=== PATIENT | male | born 1970 | race Caucasian/White ===

== ENCOUNTER 2017-06-09 10:06 | Emergency (ER) | payer MEDICARE ==
[~2017-06-09] VITALS: Ht 182.9 cm; Wt 82.0 kg
[2017-06-09 10:25] VITALS: BP 140/80; PULSE 68; RESP 20; TEMP 98; O2SAT 100
--- NOTE | 2017-06-09 10:39 | PD ---
HPI Chief Complaint: Psychiatric Symptoms Time Seen by Provider: 10:39 Travel History International Travel<30 days: No Contact w/Intl Traveler<30days: No Traveled to known affect area: No History of Present Illness HPI 47-year-old male presents to the emergency Department with various stories of being here from [place] approximate 6 months, with a history of adrenal issues as well as thyroid issues. Patient states he is living in a fpc where people as his past codeine get in his room, he feels his medications are being stolen. Patient is supposed to be taking Paxil, Dilantin , as well as thyroid medication. He states he is on disability but unable to get a job. He states supposedly had $50,000 in a bank account which is now gone. Patient denies alcohol or drug use. Is requesting to see a psychiatrist , but denies suicidal or homicidal ideation. Patient story is somewhat disjointed and tangential. He has no known drug allergies. PFSH Past Medical History Asthma: Yes Anxiety: Yes Depression: Yes Diabetes: Yes Patient Takes Glucophage: No (WATCH DIET) GERD: Yes ("GALLBLADDER TROUBLES") Medical other: Yes (ADRENAL INSUFF. ) Musculoskeletal: Yes (CLUB FOOT R ) Psychiatric: Yes Seizures: Yes (LAST SEIZURE 5 YEARS AGO) Thyroid Disease: Yes Past Surgical History Abdominal Surgery: Yes (INGUINAL SURGERY) Social History Alcohol Use: No Tobacco Use: No Substance Use: No Allergies-Medications (Allergen,Severity, Reaction): Coded Allergies: Penicillins (Verified Allergy, Unknown, 06/09/17) latex (Verified Allergy, Unknown, 06/09/17) Reported Meds & Prescriptions Reported Meds & Active Scripts Active No Active Prescriptions or Reported Medications Review of Systems Except as stated in HPI: all other systems reviewed are Neg General / Constitutional: No: Fever Eyes: No: Visual changes HENT: No: Headaches Cardiovascular: No: Chest Pain or Discomfort Respiratory: No: Shortness of Breath Gastrointestinal: No: Abdominal Pain Genitourinary: No: Dysuria Musculoskeletal: No: Pain Skin: No Rash Neurologic: No: Weakness Psychiatric: Positive: Disorder of Thought, No: Depression, Suicidal Ideations , Homicidal Ideation Endocrine: No: Polydipsia Hematologic/Lymphatic: No: Easy Bruising Physical Exam Narrative GENERAL: Patient appears in no acute distress. He is noted to be wearing lipstick and clear fingernail azeri. SKIN: Warm and dry. Normal color. Normal turgor. No signs of trauma. HEAD: Atraumatic. Normocephalic. EYES: Pupils equal and round. No scleral icterus. No injection or drainage. ENT: No nasal bleeding or discharge. Mucous membranes pink and moist. Pharynx is clear. Airway is patent. NECK: Trachea midline. Supple. No palpable thyroid. CARDIOVASCULAR: Regular rate and rhythm. RESPIRATORY: No accessory muscle use. Clear to auscultation. Breath sounds equal bilaterally. GASTROINTESTINAL: Abdomen soft, non-tender, nondistended. Hepatic and splenic margins not palpable. MUSCULOSKELETAL: Extremities without clubbing, cyanosis, or edema. No obvious deformities. NEUROLOGICAL: Awake and alert. No obvious cranial nerve deficits. Motor grossly within normal limits. Five out of 5 muscle strength in the arms and legs. Normal speech. PSYCHIATRIC: Patient is very cooperative, however his story is quite tangential and confusing. Denies suicidal ideation or homicidal ideation. Data Data Last Documented VS Vital Signs Date Time Temp Pulse Resp B/P Pulse Ox O2 Delivery O2 Flow Rate FiO2 06/09/17 10:44 69 06/09/17 10:25 98.0 20 140/80 100 Orders Complete Blood Count With Diff (06/09/17 10:49) Comprehensive Metabolic Panel (06/09/17 10:49) Thyroid Stimulating Hormone (06/09/17 10:49) Urinalysis - C+S If Indicated (06/09/17 10:49) Valproic Acid (Depakene) (06/09/17 10:49) Psych Screen (06/09/17 10:49) Drug Screen, Random Urine (06/09/17 10:49) Labs Laboratory Tests Test 06/09/17 06/09/17 06/09/17 10:50 10:58 12:41 Sodium Level 136 MEQ/L Potassium Level 3.9 MEQ/L Chloride Level 103 MEQ/L Carbon Dioxide Level 20.5 MEQ/L Anion Gap 13 MEQ/L Blood Urea Nitrogen 14 MG/DL Creatinine 0.91 MG/DL Estimat Glomerular Filtration 89 ML/MIN Rate Random Glucose 101 MG/DL Calcium Level 9.9 MG/DL Total Bilirubin 0.8 MG/DL Aspartate Amino Transf 46 U/L (AST/SGOT) Alanine Aminotransferase 25 U/L (ALT/SGPT) Alkaline Phosphatase 50 U/L Total Protein 8.7 GM/DL Albumin 4.8 GM/DL Thyroid Stimulating Hormone 0.994 uIU/ML 3rd Gen Valproic Acid (Depakene) Level 4 MCG/ML White Blood Count 12.2 TH/MM3 Red Blood Count 3.93 MIL/MM3 Hemoglobin 12.0 GM/DL Hematocrit 34.6 % Mean Corpuscular Volume 88.0 FL Mean Corpuscular Hemoglobin 30.6 PG Mean Corpuscular Hemoglobin 34.7 % Concent Red Cell Distribution Width 14.4 % Platelet Count 251 TH/MM3 Mean Platelet Volume 8.7 FL Neutrophils (%) (Auto) 70.8 % Lymphocytes (%) (Auto) 20.0 % Monocytes (%) (Auto) 7.5 % Eosinophils (%) (Auto) 0.3 % Basophils (%) (Auto) 1.4 % Neutrophils # (Auto) 8.6 TH/MM3 Lymphocytes # (Auto) 2.4 TH/MM3 Monocytes # (Auto) 0.9 TH/MM3 Eosinophils # (Auto) 0.0 TH/MM3 Basophils # (Auto) 0.2 TH/MM3 CBC Comment AUTO DIFF Differential Total Cells 100 Counted Neutrophils % (Manual) 67 % Band Neutrophils % 9 % Lymphocytes % 18 % Monocytes % 5 % Neutrophils # (Manual) 9.4 TH/MM3 Myelocytes 1 % Differential Comment FINAL DIFF MANUAL Platelet Estimate NORMAL Platelet Morphology Comment NORMAL Red Cell Morphology Comment NORMAL Urine Color YELLOW Urine Turbidity CLEAR Urine pH 6.0 Urine Specific [place] 1.011 Urine Protein 300 mg/dL Urine Glucose (UA) NEG mg/dL Urine Ketones 10 mg/dL Urine Occult Blood SMALL Urine Nitrite NEG Urine Bilirubin NEG Urine Urobilinogen LESS THAN 2.0 MG/DL Urine Leukocyte Esterase NEG Urine RBC 1 /hpf Urine WBC 3 /hpf Urine Bacteria RARE /hpf Urine Hyaline Casts 8 /lpf Microscopic Urinalysis Comment CULT NOT INDICATED Urine Opiates Screen NEG Urine Barbiturates Screen NEG Urine Amphetamines Screen NEG Urine Benzodiazepines Screen NEG Urine Cocaine Screen NEG Urine Cannabinoids Screen POS MDM Medical Decision Making Medical Screen Exam Complete: Yes Emergency Medical Condition: Yes Differential Diagnosis Mood disorder. Schizophrenia. Hypothyroidism. Narrative Course Patient is medically stable at time of exam. Psychiatric labs are ordered including TSH, and Dilantin level. CBC, CMP, and urinalysis are ordered. Urine drug screen is ordered. CBC shows slight leukocytosis of 12.1 with increased neutrophils. Patient is mildly anemic with a hemoglobin of 12.0. Chemistries are unremarkable except for a total protein of 8.7. AST elevated to 46. And a TSH of 0.994. Valproic acid level is 4. Patient is positive for marijuana and his urine. He is noted to have proteinuria but otherwise no significant findings. Labs reviewed with Dr. Patel, and the patient is felt to be medically stable. Patient is medically cleared for psychiatric evaluation. Diagnosis Primary Impression: Medical clearance for psychiatric admission Scripts No Active Prescriptions or Reported Meds Condition: Alan Gutierrez Jun 09, 2017 10:39
[2017-06-09 11:09] LABS: AUTOMATED NEUTROPHIL # 8.6 TH/MM3 (1.8-7.7); BASOPHIL # 0.2 TH/MM3 (0-0.2); BASOPHIL % 1.4 % (0.0-2.0); EOSINOPHIL % 0.3 % (0.0-4.0); HEMATOCRIT 34.6 % (39.0-51.0); LYMPHOCYTE # 2.4 TH/MM3 (1.0-4.8); MEAN CORPUSCULAR HEMOGLOBIN 30.6 PG (27.0-34.0); MEAN CORPUSCULAR HGB CONC 34.7 % (32.0-36.0); MONO % 7.5 % (0.0-8.0); NEUT % 70.8 % (16.0-70.0); PLATELET COUNT 251 TH/MM3 (150-450); RED BLOOD COUNT 3.93 MIL/MM3 (4.50-5.90); RED CELL DISTRIBUTION WIDTH 14.4 % (11.6-17.2); WHITE BLOOD COUNT 12.2 TH/MM3 (4.0-11.0)
[2017-06-09 11:11] LABS: HEMO FLAGS AUTO DIFF
[2017-06-09 11:37] LABS: ALT (GPT) 25 U/L (12-78); ANION GAP 13 MEQ/L (5-15); AST (GOT) 46 U/L (15-37); BICARBONATE 20.5 MEQ/L (21.0-32.0); BLOOD UREA NITROGEN 14 MG/DL (7-18); CHLORIDE 103 MEQ/L (98-107); GLOMERULAR FILTRATION RATE 89 ML/MIN (>89); POTASSIUM 3.9 MEQ/L (3.5-5.1); SODIUM (NA) 136 MEQ/L (136-145)
[2017-06-09 11:46] LABS: ALKALINE PHOSPHATASE 50 U/L (45-117); TOTAL BILIRUBIN ADULT 0.8 MG/DL (0.2-1.0)
[2017-06-09 11:48] LABS: BANDS 9 % (0-6); MYELOCYTES 1 % (0-0); NEUTROPHIL # MANUAL DIFF 9.4 TH/MM3 (1.8-7.7); PLATELET ESTIMATE SMEAR NORMAL (NORMAL); PLATELET MORPHOLOGY NORMAL (NORMAL); POLYS (SEG NEUTROPHILS) 67 % (16-70); SCAN/DIFF FINAL DIFF MANUAL; WBC DIFF SAMPLE 100
[2017-06-09 13:11] LABS: BACTERIA, URINE RARE /hpf; BLOOD, URINE SMALL (NEG); COMMENT (UR) CULT NOT INDICATED; CULTURE IF INDICATED CULT NOT INDICATED; GLUCOSE,URINE NEG (NEG); HYALINE CAST, URINE 8 /lpf (RARE); KETONE, URINE 10 mg/dL (NEG); NITRITE,URINE NEG (NEG); URINE COLOR YELLOW (YELLW/STRAW)
[2017-06-09 17:38] VITALS: BP 137/74; PULSE 70; RESP 18; O2SAT 100
[2017-06-09 22:25] VITALS: BP 109/58; PULSE 52; RESP 18
[2017-06-10 07:06] VITALS: BP 97/62; PULSE 53; RESP 18; O2SAT 97
[2017-06-10 11:13] VITALS: BP 112/56; PULSE 60; RESP 18; TEMP 94.6; O2SAT 96
--- NOTE | 2017-06-10 13:06 | PD ---
History of Present Illness Chief Complaint: Psychiatric Symptoms Time Seen by Provider: 12:55 Travel History International Travel<30 Days: No Contact w/Intl Traveler<30days: No Known affected area: No Legal Status Legal Status: Voluntary History of Present Illness: History of Present Illness HPI 47-year-old male with a reported history of anxiety who presents to the emergency Department on a voluntary basis reporting various health concerns including adrenal issues as well as thyroid issues and requesting a psychiatric evaluation. He states that he has been out of medications as he believes that people are coming into his room when he is not there and stealing them. he also believes that they come into his room and paint his fingernails. He currently does have nail equatorial guinean on his nails. reports that this has been happening for 2 weeks . Liliane jc also reports not sleeping well, difficulty with breathing due to " people doing drugs in his building as well as smoking". He denies any substance use but is positive for cannabinoids. Patient reports he slept very well since he has been here. EMR is reviewed. No prior contact with [facility] [place]. This morning he is alert and oriented and found him enjoying his lunch. he greets me appropriately and is very polite and well spoken male with facial features of alcohol syndrome incl small eyelid openings. He is wearing hospital gown and is maintaining basic hygiene.His speech is clear and normal rate,no pressure. There is no jeff or hypomania. No psychosis. He states " I slept. I no longer feel that there is a conspiracy against me. I'm going to keep trying to have a normal life". In terms of his medications he tells me that since he has been here he was referred to [facility] but finds it very far for him to travel via bus. We will give him a list of psychiatrists closer to his home. There is no sucidalor homicidal ideation, intent or plan. . PFSH Past Medical History Asthma: Yes Anxiety: Yes Depression: Yes Diabetes: Yes Patient Takes Glucophage: No (WATCH DIET) GERD: Yes ("GALLBLADDER TROUBLES") Medical other: Yes (ADRENAL INSUFF. ) Musculoskeletal: Yes (CLUB FOOT R ) Psychiatric: Yes Seizures: Yes (LAST SEIZURE 5 YEARS AGO) Thyroid Disease: Yes Past Surgical History Abdominal Surgery: Yes (INGUINAL SURGERY) Psychiatric History Psychiatric History Hx Psychiatric Treatment: [facility] in december 2016. History of Inpatient Treatment: Yes Guns or firearms in home: No Social History Single male. Lives in a studio apartment. On disability. Hx Alcohol Use: No Hx Tobacco Use: No Hx Substance Use: Yes Substance Use Type: Marijuana Hx of Substance Use Treatment: No Family Psychiatric History Positive for reported alcohol abuse by father and mother. Allergies-Medications (Allergen,Severity, Reaction): Coded Allergies: Penicillins (Verified Allergy, Unknown, 06/09/17) latex (Verified Allergy, Unknown, 06/09/17) Reported Meds & Prescriptions Reported Meds & Active Scripts Active No Active Prescriptions or Reported Medications Review of Systems Except as stated in HPI: all other systems reviewed are Neg Exam Alert: Yes [place]: Person (ox4) Mood: Calm Affect: Appropriate Speech: Clear, Logical Eye Contact: Normal Memory Intact: Comment (No impairment) Hallucinations: Other (Negative) Delusions: No Suicidal: Ideation (Negative) Homicidal: Ideation (Negative) Insight/Judgement Fair. Not impaired MDM Medical Decision Making Medical Record Reviewed: Yes Assessment/Plan 47-year-old male with a reported history of anxiety who presents to the emergency Department on a voluntary basis reporting various health concerns including adrenal issues as well as thyroid issues and requesting a psychiatric evaluation. He reported that he believed people were coming into his room and stealing his medications, painting his fingernails, poisoning his food with drugs. The patient tests positive for cannabinoids and admits to ' smoking only now and then". I believe that thsi may be a substance induced psychosis as he is clear this morning. He is recommended to follow up on outpatient basis as he does not meet criteria for inpatient treatment. 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
== END 2017-06-10 14:03 | disposition home or self-care (01) ==
LOC: NEPD 10:06 → NEPJ 06-10 14:03
DX: F23 Brief psychotic disorder (principal); F22 Delusional disorders; F43.20 Adjustment disorder, unspecified; F41.9 Anxiety disorder, unspecified; J45.909 Unspecified asthma, uncomplicated; E11.9 Type 2 diabetes mellitus without complications; K21.9 Gastro-esophageal reflux disease without esophagitis; R56.9 Unspecified convulsions; E07.9 Disorder of thyroid, unspecified
CPT/HCPCS: 80053; 80164; 80307; 81001; 84443; 85007; 85027; 99284